=== PATIENT | female | born 1965 | race Caucasian/White ===

== ENCOUNTER 2016-09-27 03:22 | Emergency (ER) | payer BC ==
[2016-09-27 04:09] VITALS: BP 161/85; PULSE 100; TEMP 98.2; BMI 37.5
[2016-09-27] MEDS ORDERED: CLINDAMYCIN HCL 150 MG CAPSULE (FP) PO ONE (04:30)
[2016-09-27] MEDS ORDERED: IBUPROFEN 400 MG TABLET (FP) PO ONE ×2 (04:30→04:35)
[2016-09-27] MEDS ORDERED: OXYCODONE/APAP 5/325MG COMBO TABLET PO ONE (04:30)
[2016-09-27] MEDS ORDERED: CLINDAMYCIN HCL 150 MG CAPSULE (FP) ONE (04:34)
[2016-09-27] MEDS ORDERED: OXYCODONE/APAP 5/325MG COMBO TABLET ONE (04:34)
--- NOTE | 2016-09-27 04:38 | PDOC ---
"History of Present Illness - General Chief Complaint: Toothache Stated Complaint: TOOTHACHE Time Seen by Provider: 09/27/16 04:19 History Source: Patient Exam Limitations: No Limitations - History of Present Illness Initial Comments: 09/27/16 04:31 51yo Female patient presents to ED c/o dental pain that began yesterday and worsened today. Patient states she has ongoing dental issues, but does not have dental insurance. She denies any other complaints at this time. Past History - Travel Traveled outside of the country in the last 30 days: No Close contact w/someone who was outside of country & ill: No - Past Medical History Allergies/Adverse Reactions: Allergies Allergy/AdvReac Type Severity Reaction Status Date / Time Penicillins Allergy Hives Verified 09/27/16 04:05 Sulfa (Sulfonamide Allergy Verified 09/27/16 04:05 Antibiotics) beta blockers Allergy Intermediate Swelling Uncoded 09/27/16 04:05 Home Medications: Ambulatory Orders Aspirin [ASA -] 81 mg PO DAILY 03/02/14 Atorvastatin Ca [Lipitor -] 40 mg PO HS 03/02/14 Clonidine HCl 0.2 mg PO BID 03/02/14 Diltiazem Cd [Cardizem Cd -] 180 mg PO DAILY 03/02/14 Cholecalciferol (Vitamin D3) [Vitamin D] 1,000 unit PO DAILY 01/05/16 Metformin HCl [Metformin HCl ER] 1,000 mg PO BID 02/21/16 Nitrofurantoin Macrocrystal [Macrodantin -] 100 mg PO BID #14 capsule 02/21/16 Ramipril [Altace] 2.5 mg PO DAILY 02/21/16 Clindamycin [Cleocin -] 300 mg PO QID #28 capsule 09/27/16 Ibuprofen [Motrin -] 600 mg PO Q8H PRN #30 tablet 09/27/16 Oxycodone HCl/Acetaminophen [Percocet 5-325 mg Tablet] 1 tab PO Q6H PRN #20 tablet MDD 4 tabs 09/27/16 Anemia: No Asthma: No Cardiac Disorders: Yes ([place](2005)) CHF: No Diabetes: Yes (NIDDM) Disorders: Yes (Stag Horn Calculus/L, LEFT KIDNEY REMOVED) HTN: Yes Hypercholesterolemia: Yes Kidney Stones: Yes Suicide Attempt (Hx): No Thyroid Disease: Yes - Surgical History Abdominal Surgery: Yes (PARTIAL HYSTERECTOMY 2007) Cardiac Surgery: Yes (STENT X1 2005) Orthopedic Surgery: Yes (right knee arthroscopy and 'cushion'by Dr. Guevara) - Reproductive History Cervical CA: No Dysfunctional Uterine Bleeding: No Ectopic : No Endometrial CA: No Polycystic Ovaries: No Therapeutic (s) & number: No Tubal Ligation: No - Immunization History Immunization Up to Date: Yes - Psycho/Social/Smoking Cessation Hx Anxiety: No Suicidal Ideation: No Smoking Status: No Smoking History: Never smoked Have you smoked in the past 12 months: No Number of Cigarettes Smoked Daily: 0 If you are a former smoker, when did you quit?: 2005 Cigars Per Day: 0 Information on smoking cessation initiated: No 'Breaking Loose' booklet given: 02/15/12 Hx Alcohol Use: No Drug/Substance Use Hx: No Substance Use Type: None Hx Substance Use Treatment: No Review of Systems - Review of Systems Able to Perform ROS?: Yes Is the patient limited Faroese proficient: No Constitutional: No: Chills, Fever HEENTM: Yes: Mouth Pain, Dental Problems, Mouth Swelling. No: Throat Pain, Throat Swelling, Difficulty Swallowing All Other Systems: Reviewed and Negative *Physical Exam - Vital Signs Last Vital Signs Temp Pulse Resp BP Pulse Ox 98.2 F 100 H 14 161/85 100 09/27/16 04:05 09/27/16 04:05 09/27/16 04:05 09/27/16 04:05 09/27/16 04:05 - Physical Exam General Appearance: Yes: Nourished, Appropriately Dressed, Apparent Distress, Moderate Distress. No: Mild Distress, Severe Distress HEENT: positive: EOMI, CHAPARRO, Normal ENT Inspection, Normal Voice, Symmetrical, TMs Normal, Pharynx Normal, Other (Numerous severe dental caries w/ missing teeth.). negative: Pharyngeal Erythema, Tonsillar Exudate, Tonsillar Erythema, Nasal Congestion, Rhinorrhea, TM Bulging, TM Dull, TM Erythema Neck: positive: Trachea midline, Supple. negative: Lymphadenopathy (R), Lymphadenopathy (L) Respiratory/Chest: positive: Lungs Clear, Normal Breath Sounds. negative: Respiratory Distress, Accessory Muscle Use, Labored Respiration, Rapid RR, Rhonchi, Stridor, Wheezing Cardiovascular: positive: Regular Rhythm, Regular Rate. negative: Edema, JVD, Murmur Gastrointestinal/Abdominal: positive: Normal Bowel Sounds, Soft. negative: Distended, Guarding, Rebound, Tenderness Musculoskeletal: positive: Normal Inspection. negative: CVA Tenderness Extremity: positive: Normal Capillary Refill, Normal Inspection, Normal Range of Motion. negative: Pedal Edema, Swelling, Calf Tenderness, Erythema, Inflammation Integumentary: positive: Normal Color, Dry, Warm Neurologic: positive: patient case manager II-XII NML intact, Fully Oriented, Alert, Normal Mood/ Affect, Normal Response, Motor Strength 5/5 Medical Decision Making - Medical Decision Making 09/27/16 04:41 Patient Search Multi-Patient Search Reports Drug Listing Designation My JOSE MARIA Numbers Data Detail Level: Printer-Friendly View | Show Extended View Confidential Drug Utilization Report Search Terms: Laurie Pacheco, 1965 Search Date: 09/27/2016 04:42:08 AM The Drug Utilization Report below displays all of the controlled substance prescriptions, if any, that your patient has filled in the last twelve months. The information displayed on this report is compiled from pharmacy submissions to the Department, and accurately reflects the information as submitted by the pharmacies. This report was requested by: Jean Carlos Mckoy | Reference #: [id number] There are no results for the search terms that you entered. *DC/Admit/Observation/Transfer Diagnosis at time of Disposition: Pain due to dental caries - Discharge Dispostion Disposition: HOME Condition at time of disposition: Stable Admit: No - Prescriptions Prescriptions: Clindamycin [Cleocin -] 300 mg PO QID #28 capsule Ibuprofen [Motrin -] 600 mg PO Q8H PRN #30 tablet PRN Reason: Mild Pain Oxycodone HCl/Acetaminophen [Percocet 5-325 mg Tablet] 1 tab PO Q6H PRN #20 tablet MDD 4 tabs PRN Reason: Severe Pain - Referrals Referrals: Julio Kaplan MD [Primary Care Provider] - - Patient Instructions Printed Discharge Instructions: DI for Dental Pain, DI for Tooth Decay Additional Instructions: FOLLOW UP WITH YOUR DENTIST DISCUSSED. TAKE MEDICATIONS PRESCRIBED. DO NOT DRIVE, DRINK ALCOHOL, OR OPERATE HEAVY MACHINERY WHILE TAKING PERCOCET. RINSE MOUTH WITH WARM SALT WATER TWICE DAILY. Print Language: NAURUAN"
== END 2016-09-27 04:54 | disposition home or self-care (01) ==
LOC: JER 03:22
DX: K02.9 Dental caries, unspecified (principal); I25.2 Old myocardial infarction; I10 Essential (primary) hypertension; E78.00 Pure hypercholesterolemia, unspecified; E11.9 Type 2 diabetes mellitus without complications; Z79.84 Long term (current) use of oral hypoglycemic drugs
CPT/HCPCS: 99282-25

== ENCOUNTER 2017-06-13 18:27 | Emergency (ER) | payer BC ==
[2017-06-13] MEDS ORDERED: CLINDAMYCIN HCL 300 MG CAPSULE PO ONE (19:11)
--- NOTE | 2017-06-13 19:11 | PDOC ---
Rapid Medical Evaluation Time Seen by Provider: 06/13/17 19:08 Medical Evaluation: Allergies Allergy/AdvReac Type Severity Reaction Status Date / Time Penicillins Allergy Hives Verified 09/27/16 04:05 Sulfa (Sulfonamide Allergy Verified 09/27/16 04:05 Antibiotics) beta blockers Allergy Intermediate Swelling Uncoded 09/27/16 04:05 06/13/17 19:08 I have performed a brief-in person evaluation of this patient. The patient presents with a chief complaint of: I haVE a toothache since last night Pertinent physical exam findings: right lower 2nd molar toothache I have ordered the following: Clindamycin 600mg The patient will proceed to the ED for further evaulation.
[2017-06-13 19:14] VITALS: BP 159/103; PULSE 82; TEMP 98.8; BMI 37.3
--- NOTE | 2017-06-13 19:16 | PDOC ---
History of Present Illness - General Chief Complaint: Toothache Stated Complaint: PAIN Time Seen by Provider: 06/13/17 19:08 History Source: Patient - History of Present Illness Initial Comments: 06/13/17 19:14 51 yo F w/ ho [place], renal failure presents c/o right lower 2nd molar toothache since last evening without fever/chills, n/v, sore throat, difficulty swallowing. Patient states pain is described as 7/10 throbbing intermittent discomfort which is exacerbated with cold fluids. Patient has an appointment with her dentist in 2 days this feels the pain is causing her extreme difficulty with sleeping. Patient denies any other complaints. Past History - Past Medical History Allergies/Adverse Reactions: Allergies Allergy/AdvReac Type Severity Reaction Status Date / Time Penicillins Allergy Hives Verified 06/13/17 19:11 Sulfa (Sulfonamide Allergy Verified 06/13/17 19:11 Antibiotics) beta blockers Allergy Intermediate Swelling Uncoded 09/27/16 04:05 Home Medications: Ambulatory Orders Aspirin [ASA -] 81 mg PO DAILY 03/02/14 Atorvastatin Ca [Lipitor -] 40 mg PO HS 03/02/14 Clonidine HCl 0.2 mg PO BID 03/02/14 Diltiazem Cd [Cardizem Cd -] 180 mg PO DAILY 03/02/14 Cholecalciferol (Vitamin D3) [Vitamin D] 1,000 unit PO DAILY 01/05/16 Metformin HCl [Metformin HCl ER] 1,000 mg PO BID 02/21/16 Ramipril [Altace] 2.5 mg PO DAILY 02/21/16 Acetaminophen W/ Codeine #3 [Tylenol # 3 -] 1 tab PO Q6H #12 tablet MDD 4 Clindamycin HCl 300 mg PO TID #15 capsule 06/13/17 Anemia: No Asthma: No Cardiac Disorders: Yes ([place](2005)) COPD: No CHF: No Diabetes: Yes (NIDDM) Disorders: Yes (Stag Horn Calculus/L, LEFT KIDNEY REMOVED) HTN: Yes Hypercholesterolemia: Yes Kidney Stones: Yes Thyroid Disease: Yes - Surgical History Abdominal Surgery: Yes (PARTIAL HYSTERECTOMY 2007) Cardiac Surgery: Yes (STENT X1 2005) Orthopedic Surgery: Yes (right knee arthroscopy and 'cushion'by Dr. Guevara) - Reproductive History Cervical CA: No Dysfunctional Uterine Bleeding: No Ectopic : No Endometrial CA: No Polycystic Ovaries: No Therapeutic (s) & number: No Tubal Ligation: No - Immunization History Immunization Up to Date: Yes - Suicide/Smoking/Psychosocial Hx Smoking Status: No Smoking History: Never smoked Have you smoked in the past 12 months: No Number of Cigarettes Smoked Daily: 0 If you are a former smoker, when did you quit?: 2005 Cigars Per Day: 0 Information on smoking cessation initiated: No 'Breaking Loose' booklet given: 02/15/12 Hx Alcohol Use: No Drug/Substance Use Hx: No Substance Use Type: None Hx Substance Use Treatment: No Review of Systems - Review of Systems Able to Perform ROS?: Yes Comments:: 06/14/17 04:27 CONSTITUTIONAL: Absent: fever, chills, diaphoresis, generalized weakness, malaise, loss of appetite HEENT: Right lower molar toothache Absent: rhinorrhea, nasal congestion, throat pain, throat swelling, difficulty swallowing, mouth swelling, ear pain, eye pain, visual Changes CARDIOVASCULAR: Absent: chest pain, loss of consciousness, palpitations, irregular heart rate, peripheral edema RESPIRATORY: Absent: cough, shortness of breath, dyspnea with exertion, orthopnea, wheezing, stridor, hemoptysis Is the patient limited Estonian proficient: No *Physical Exam - Vital Signs Last Vital Signs Temp Pulse Resp BP Pulse Ox 98.8 F 82 18 159/103 99 06/13/17 19:11 06/13/17 19:11 06/13/17 19:11 06/13/17 19:11 06/13/17 19:11 - Physical Exam Comments: 06/14/17 04:28 GENERAL: Well developed, well nourished. Awake and alert. No acute distress. HEENT: Right lower 2nd molar pain on percussion Normocephalic, atraumatic. PERRLA, EOMI. No conjunctival pallor. Sclera are non- icteric. Moist mucous membranes. Oropharynx is clear. NECK: Supple. Full ROM. No JVD. Carotid pulses 2+ and symmetric, without bruits. No thyromegaly. No lymphadenopathy. CARDIOVASCULAR: Regular rate and rhythm. No murmurs, rubs, or gallops. Distal pulses are 2+ and symmetric. *DC/Admit/Observation/Transfer Diagnosis at time of Disposition: Toothache - Discharge Dispostion Disposition: HOME Condition at time of disposition: Good Admit: No - Prescriptions Prescriptions: Acetaminophen W/ Codeine #3 [Tylenol # 3 -] 1 tab PO Q6H #12 tablet MDD 4 Clindamycin HCl 300 mg PO TID #15 capsule - Referrals Referrals: Julio Kaplan MD [Primary Care Provider] - - Patient Instructions Printed Discharge Instructions: DI for Tooth Decay Additional Instructions: Follow up with your dentist tomorrow Take the clindamycin as prescribed Tylenol #3 for pain. 1 tablet by mouth every 6 hours only as needed for pain Return to the ER for severe/persistent/worsening symptoms - Post Discharge Activity
== END 2017-06-13 19:38 | disposition home or self-care (01) ==
LOC: JERFT 18:27
DX: K08.89 Other specified disorders of teeth and supporting structures (principal); I25.2 Old myocardial infarction; I25.10 Atherosclerotic heart disease of native coronary artery without angina pectoris; I10 Essential (primary) hypertension; Z95.5 Presence of coronary angioplasty implant and graft; E11.9 Type 2 diabetes mellitus without complications; Z79.84 Long term (current) use of oral hypoglycemic drugs; E78.00 Pure hypercholesterolemia, unspecified; Z87.442 Personal history of urinary calculi
CPT/HCPCS: 99281-25

== ENCOUNTER 2018-04-19 13:10 | Emergency (ER) | payer BC ==
[2018-04-19 14:02] VITALS: BP 111/82; PULSE 97; TEMP 98.5; BMI 37.0
--- NOTE | 2018-04-19 14:44 | PDOC ---
History of Present Illness - General Chief Complaint: Diarrhea Stated Complaint: DIARRHEA Time Seen by Provider: 04/19/18 14:26 History Source: Patient - History of Present Illness Timing/Duration: reports: constant Past History - Past Medical History Allergies/Adverse Reactions: Allergies Allergy/AdvReac Type Severity Reaction Status Date / Time Penicillins Allergy Hives Verified 04/19/18 13:59 Sulfa (Sulfonamide Allergy Verified 04/19/18 13:59 Antibiotics) beta blockers Allergy Intermediate Swelling Uncoded 04/19/18 13:59 Home Medications: Ambulatory Orders Aspirin [ASA -] 81 mg PO DAILY 03/02/14 Atorvastatin Ca [Lipitor -] 40 mg PO HS 03/02/14 Clonidine HCl 0.2 mg PO BID 03/02/14 Diltiazem Cd [Cardizem Cd -] 180 mg PO DAILY 03/02/14 Cholecalciferol (Vitamin D3) [Vitamin D] 1,000 unit PO DAILY 01/05/16 Metformin HCl [Metformin HCl ER] 1,000 mg PO BID 02/21/16 Ramipril [Altace] 2.5 mg PO DAILY 02/21/16 Acetaminophen W/ Codeine #3 [Tylenol # 3 -] 1 tab PO Q6H #12 tablet MDD 4 Clindamycin HCl 300 mg PO TID #15 capsule 06/13/17 Clindamycin [Cleocin -] 300 mg PO Q6HPO #40 capsule 12/27/17 Ibuprofen [Motrin -] 600 mg PO QID PRN #28 tablet 12/27/17 Anemia: No Asthma: No Cardiac Disorders: Yes ([place](2005)) COPD: No CHF: No Diabetes: Yes (NIDDM) Disorders: Yes (Stag Horn Calculus/L, LEFT KIDNEY REMOVED) HTN: Yes Hypercholesterolemia: Yes Kidney Stones: Yes Thyroid Disease: Yes - Surgical History Abdominal Surgery: Yes (PARTIAL HYSTERECTOMY 2007) Cardiac Surgery: Yes (STENT X1 2005) Orthopedic Surgery: Yes (right knee arthroscopy and 'cushion'by Dr. Guevara) - Reproductive History Cervical CA: No Dysfunctional Uterine Bleeding: No Ectopic : No Endometrial CA: No Polycystic Ovaries: No Therapeutic (s) & number: No Tubal Ligation: No - Immunization History Immunization Up to Date: Yes - Suicide/Smoking/Psychosocial Hx Smoking Status: No Smoking History: Never smoked Have you smoked in the past 12 months: No Number of Cigarettes Smoked Daily: 0 If you are a former smoker, when did you quit?: 2005 Cigars Per Day: 0 'Breaking Loose' booklet given: 02/15/12 Hx Alcohol Use: No Drug/Substance Use Hx: No Substance Use Type: None Hx Substance Use Treatment: No Abd/GI Specific PMHX - Complaint Specific PMHX GERD: No GI Ulcer Disease: No Review of Systems - Review of Systems Constitutional: No: Chills, Fever, Weakness ABD/GI: Yes: Diarrhea, Abdominal cramping. No: Blood Streaked Bowels, Constipated, Nausea, Rectal Bleeding, Vomiting : No: Dysuria *Physical Exam - Vital Signs Last Vital Signs Temp Pulse Resp BP Pulse Ox 98.5 F 97 H 18 111/82 97 04/19/18 13:59 04/19/18 13:59 04/19/18 13:59 04/19/18 13:59 04/19/18 13:59 - Physical Exam General Appearance: Yes: Appropriately Dressed. No: Apparent Distress HEENT: positive: Normal Voice Neck: positive: Supple Respiratory/Chest: negative: Respiratory Distress Gastrointestinal/Abdominal: positive: Normal Bowel Sounds, Soft. negative: Tender, Distended, Guarding, Rebound Musculoskeletal: negative: CVA Tenderness Integumentary: positive: Dry, Warm Neurologic: positive: Fully Oriented, Alert, Normal Mood/Affect ED Treatment Course - LABORATORY CBC & Chemistry Diagram: 04/19/18 14:55 04/19/18 14:55 Medical Decision Making - Medical Decision Making 04/19/18 14:39 52-year-old female, history of HTN, HLD, s/p resection of L kidney 2/2 staghorn calculus, here with diarrhea. Patient states for the past 3 days she' s had multiple episodes of non-bloody watery stools. At some point developed vague, intermittent, lower abdominal cramping pain that started after the diarrhea. No nausea, vomiting, fever, chills, weakness or dizziness. No sick contacts, recent travel, unusual food or recent antibiotic use. Patient states she has been drinking plenty of fluids to prevent herself from getting dehydrated since she only has 1 kidney but still concerned about possible dehydration See exam Diarrhea No RF for serious dysentery Stable and well echo w/ benign abd -basic labs -anticipate discharge w/ supportive tx 04/19/18 14:44 04/19/18 17:46 Labs unremarkable. Pt remained stable w/ benign abd. Will dc w/ supportive tx. Reasons to return d/w pt *DC/Admit/Observation/Transfer Diagnosis at time of Disposition: Diarrhea Qualifiers: Diarrhea type: unspecified type Qualified Code(s): R19.7 - Diarrhea, unspecified - Discharge Dispostion Disposition: HOME Condition at time of disposition: Good - Referrals Referrals: Julio Kaplan MD [Primary Care Provider] - - Patient Instructions Printed Discharge Instructions: Diarrhea Additional Instructions: The most common cause of diarrhea are viruses, bacteria, medications and lactose intolerance Most diarrheal illnesses are mild in nature and resolves over several days More concerning cause of diarrhea are diarrhea that lasts for a week or longer, mixed with a large amount of blood, causes severe, persistent abdominal pain or associated with high fevers, associated with antibiotics use or diarrhea that starts after recent travel, most notably to a 3rd world country If you develop the above symptoms, return to the ER, otherwise, rest your bowel by eating foods low in fiber such as bananas, rice, applesauce, toast and tea. This diet helps to reduce the amount of stool produced. Also drink plenty of fluids to prevent dehydration - Post Discharge Activity
--- NOTE | 2018-04-19 15:01 | PDOC ---
*Physical Exam - Vital Signs Last Vital Signs Temp Pulse Resp BP Pulse Ox 98.5 F 97 H 18 111/82 97 04/19/18 13:59 04/19/18 13:59 04/19/18 13:59 04/19/18 13:59 04/19/18 13:59 ED Treatment Course - LABORATORY CBC & Chemistry Diagram: 04/19/18 14:55 04/19/18 14:55 Medical Decision Making - Medical Decision Making 04/19/18 15:01 52 yo F p/w diarrhea Concerned about renal insufficiency because she has had 3 days of symptoms and has only 1 kidney No fevers No recent abx Pt hydrated in the ER No abd tenderness Pt seen by Midlevel Provider under my direct supervision Ancillary studies reviewed I agree with plan as outlined by Midlevel Provider 04/19/18 18:52 *DC/Admit/Observation/Transfer Diagnosis at time of Disposition: Diarrhea - Discharge Dispostion Disposition: HOME Condition at time of disposition: Good - Referrals Referrals: Julio Kaplan MD [Primary Care Provider] - - Patient Instructions Printed Discharge Instructions: Diarrhea Additional Instructions: The most common cause of diarrhea are viruses, bacteria, medications and lactose intolerance Most diarrheal illnesses are mild in nature and resolves over several days More concerning cause of diarrhea are diarrhea that lasts for a week or longer, mixed with a large amount of blood, causes severe, persistent abdominal pain or associated with high fevers, associated with antibiotics use or diarrhea that starts after recent travel, most notably to a 3rd world country If you develop the above symptoms, return to the ER, otherwise, rest your bowel by eating foods low in fiber such as bananas, rice, applesauce, toast and tea. This diet helps to reduce the amount of stool produced. Also drink plenty of fluids to prevent dehydration - Post Discharge Activity
[2018-04-19 15:08] LABS: BASO % 0.5 % (0-2.0); EOS % 0.3 % (0-4.5); HEMATOCRIT 47.2 % (32.4-45.2); HEMOGLOBIN 15.9 GM/dL (10.7-15.3); LYMPH % 20.3 % (8-40); MCH 29.5 pg (25.7-33.7); MCHC 33.8 g/dl (32.0-36.0); MEAN CELL VOLUME 87.3 fl (80-96); MEAN PLT VOLUME 8.4 fl (7.5-11.1); MONO % 4.4 % (3.8-10.2); NEUT % 74.5 % (42.8-82.8); PLATELET COUNT 256 K/MM3 (134-434); RBC 5.41 M/mm3 (3.60-5.2); RDW 13.4 % (11.6-15.6); WHITE BLOOD COUNT 11.6 K/mm3 (4.0-10.0)
[2018-04-19 15:52] LABS: ALBUMIN 4.1 g/dl (3.4-5.0); ALK PHOS 122 U/L (45-117); ANION GAP 12 MMOL/L (8-16); BILIRUBIN,TOTAL 0.5 mg/dL (0.2-1); BLOOD UREA NITROGEN 14 mg/dL (7-18); CALCIUM 10.1 mg/dL (8.5-10.1); CHLORIDE 104 mmol/L (98-107); CO2 21 mmol/L (21-32); GLUCOSE,RANDOM 159 mg/dL (74-106); SGOT/AST 14 U/L (15-37); SGPT/ALT 26 U/L (13-61); SODIUM 137 mmol/L (136-145); TOT PROT 8.1 g/dl (6.4-8.2)
== END 2018-04-19 18:55 | disposition home or self-care (01) ==
LOC: JER 13:10
DX: R19.7 Diarrhea, unspecified (principal); I25.10 Atherosclerotic heart disease of native coronary artery without angina pectoris; I10 Essential (primary) hypertension; Z95.5 Presence of coronary angioplasty implant and graft; I25.2 Old myocardial infarction; E11.9 Type 2 diabetes mellitus without complications; E78.00 Pure hypercholesterolemia, unspecified; Z87.442 Personal history of urinary calculi; Z90.5 Acquired absence of kidney; E07.9 Disorder of thyroid, unspecified
CPT/HCPCS: 36415; 80053; 85025; 99282-25

== ENCOUNTER 2018-11-18 09:13 | Inpatient (IN) | payer BC ==
--- NOTE | 2018-11-18 09:43 | PDOC ---
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 Patient states that this started at 8am this morning when she woke up. She usually takes 81mg ASA, but took 325mg this morning. Patient describes the pain as "sharp" and rates it 5/10. It radiates to her left shoulder and is constant. She is unable to states what makes it better or worse. No nausea, vomiting, or diaphresis. She has had dyspnea on exertion for the last two weeks. Follows with a radiation oncologist. Reports she had stress test and ECHO last year and the results were "normal." Mother had an [place] at age 39 and father had one at age 47. Took a [address] trip on 10/31/18. No hemoptysis, no recent surgical history, no hormone use, no history of DVT or PE. No fevers, chills, or abdominal pain. PCP: Julio Kaplan Cardio: Dr. Perez Past History - Past Medical History Allergies/Adverse Reactions: Allergies Allergy/AdvReac Type Severity Reaction Status Date / Time Penicillins Allergy Hives Verified 11/18/18 09:19 Sulfa (Sulfonamide Allergy Verified 11/18/18 09:19 Antibiotics) beta blockers Allergy Intermediate Swelling Uncoded 11/18/18 09:19 Home Medications: Ambulatory Orders Aspirin [ASA -] 81 mg PO DAILY 03/02/14 Atorvastatin Ca [Lipitor -] 40 mg PO HS 03/02/14 Clonidine HCl 0.2 mg PO BID 03/02/14 Diltiazem Cd [Cardizem Cd -] 180 mg PO DAILY 03/02/14 Cholecalciferol (Vitamin D3) [Vitamin D] 1,000 unit PO DAILY 01/05/16 Ramipril [Altace] 2.5 mg PO DAILY 02/21/16 metFORMIN HCL [Metformin HCl ER] 1,000 mg PO BID 02/21/16 Acetaminophen W/ Codeine #3 [Tylenol # 3 -] 1 tab PO Q6H #12 tablet MDD 4 Clindamycin HCl 300 mg PO TID #15 capsule 06/13/17 Clindamycin [Cleocin -] 300 mg PO Q6HPO #40 capsule 12/27/17 Ibuprofen [Motrin -] 600 mg PO QID PRN #28 tablet 12/27/17 Anemia: No Asthma: No Cardiac Disorders: Yes ([place](2005)) COPD: No CHF: No Diabetes: Yes (NIDDM) Disorders: Yes (Stag Horn Calculus/L, LEFT KIDNEY REMOVED) HTN: Yes Hypercholesterolemia: Yes Kidney Stones: Yes Thyroid Disease: Yes - Surgical History Abdominal Surgery: Yes (PARTIAL HYSTERECTOMY 2007) Cardiac Surgery: Yes (STENT X1 2005) Orthopedic Surgery: Yes (right knee arthroscopy and 'cushion'by Dr. Guevara) - Reproductive History Cervical CA: No Dysfunctional Uterine Bleeding: No Ectopic : No Endometrial CA: No Polycystic Ovaries: No Therapeutic (s) & number: No Tubal Ligation: No - Immunization History Immunization Up to Date: Yes - Suicide/Smoking/Psychosocial Hx Smoking Status: No Smoking History: Never smoked Have you smoked in the past 12 months: No Number of Cigarettes Smoked Daily: 0 If you are a former smoker, when did you quit?: 2005 Cigars Per Day: 0 'Breaking Loose' booklet given: 02/15/12 Hx Alcohol Use: No Drug/Substance Use Hx: No Substance Use Type: None Hx Substance Use Treatment: No Review of Systems - Review of Systems Comments:: Constitutional: no fever, no chills HEENT: no throat pain, no dysphagia Cardiovascular: +chest pain, no palpitations Respiratory: no cough, no shortness of breath Gastrointestinal: no abdominal pain, no nausea Genitourinary: no dysuria, no frequency Musculoskeletal: no myalgia, no arthralgia Skin: no rash, no itching Neurologic: no headache, +lightheaded *Physical Exam - Vital Signs Last Vital Signs Temp Pulse Resp BP Pulse Ox 98.7 F 89 18 132/75 96 11/18/18 09:19 11/18/18 09:19 11/18/18 09:19 11/18/18 09:11/18/18 09:19 - Physical Exam Comments: General: Awake, alert, and fully oriented, in no acute distress Head: No signs of trauma Eyes: EOMI, sclera anicteric ENT: Moist mucus membranes Neck: Normal ROM, supple Lungs: Lungs clear, Normal breath sounds Cardio: Regular rhythm, S1 and S2 present Abdomen: Soft, nontender. Extremities: Normal range of motion, Distal pulses present. No calf tenderness SKIN: Warm, Dry, normal turgor Neurologic: Cranial nerves II through XII grossly intact. Normal speech ED Treatment Course - LABORATORY CBC & Chemistry Diagram: 11/18/18 11:45 11/18/18 11:45 Medical Decision Making - Medical Decision Making 53yo F with PMH of HTN, HLD, [place] in 2005 s/p stent, L. kidney resection presenting with chest pain. DDX including but not limited to ACS, PE, PNA, MSK. GERD Labs, EKG, CXR EKG: rate 79, QTc 410, NSR, No ST d/e 11/18/18 09:47 CBC WBC 7.9 K/mm3 (4.0-10.0) 11/18/18 11:45 RBC 4.89 M/mm3 (3.60-5.2) 11/18/18 11:45 Hgb 14.0 GM/dL (10.7-15.3) 11/18/18 11:45 Hct 42.6 % (32.4-45.2) 11/18/18 11:45 MCV 87.1 fl (80-96) 11/18/18 11:45 MCH 28.6 pg (25.7-33.7) 11/18/18 11:45 MCHC 32.8 g/dl (32.0-36.0) 11/18/18 11:45 RDW 13.1 % (11.6-15.6) 11/18/18 11:45 Plt Count 207 K/MM3 (134-434) 11/18/18 11:45 MPV 8.7 fl (7.5-11.1) 11/18/18 11:45 Absolute Neuts (auto) 4.5 K/mm3 (1.5-8.0) 11/18/18 11:45 Neutrophils % 56.6 % (42.8-82.8) D 11/18/18 11:45 Lymphocytes % 36.3 % (8-40) D 11/18/18 11:45 Monocytes % 5.4 % (3.8-10.2) 11/18/18 11:45 Eosinophils % 1.3 % (0-4.5) D 11/18/18 11:45 Basophils % 0.4 % (0-2.0) 11/18/18 11:45 Nucleated RBC % 0 % (0-0) 11/18/18 11:45 No anemia or leukocytosis CMP Sodium 138 mmol/L (136-145) 11/18/18 11:45 Potassium 4.5 mmol/L (3.5-5.1) 11/18/18 11:45 Chloride 103 mmol/L (98-107) 11/18/18 11:45 Carbon Dioxide 28 mmol/L (21-32) 11/18/18 11:45 Anion Gap 7 MMOL/L (8-16) L 11/18/18 11:45 BUN 16 mg/dL (7-18) 11/18/18 11:45 Creatinine 1.1 mg/dL (0.55-1.3) 11/18/18 11:45 Est GFR (CKD-EPI)AfAm 66.85 11/18/18 11:45 Est GFR (CKD-EPI)NonAf 57.68 11/18/18 11:45 Random Glucose 315 mg/dL (74-106) H* 11/18/18 11:45 Calcium 9.5 mg/dL (8.5-10.1) 11/18/18 11:45 Total Bilirubin 0.4 mg/dL (0.2-1) 11/18/18 11:45 AST 11 U/L (15-37) L 11/18/18 11:45 ALT 24 U/L (13-61) 11/18/18 11:45 Alkaline Phosphatase 122 U/L (45-117) H 11/18/18 11:45 Creatine Kinase 66 U/L (26-192) 11/18/18 11:45 Troponin I < 0.02 ng/ml (0.00-0.05) 11/18/18 11:45 B-Natriuretic Peptide 55.6 pg/ml (5-125) 11/18/18 11:45 Total Protein 7.2 g/dl (6.4-8.2) 11/18/18 11:45 Albumin 3.7 g/dl (3.4-5.0) 11/18/18 11:45 Electrolytes unremarkable Tpn undetectable CXR: "Unremarkable contour of the cardiomediastinal silhouette. The lungs are well aerated without evidence of a pulmonary infiltrates, atelectasis. No evidence of vascular congestive changes. No evidence of bulky hilar adenopathy. No pneumothorax, or large pleural effusion is seen. The visualized osseous structures appear intact. Impression. No evidence of active pulmonary disease" 11/18/18 12:52 HEART score is 4 (age, risk factors, moderately suspicious history) Plan for telemetry observation 11/18/18 12:[address] Tate who accepted patient for telemetry observation under herself. 1g Ofirmev ordered for continued chest pain. Nitro was considered but blood pressure is on the lower side. 11/18/18 13:02 *DC/Admit/Observation/Transfer Diagnosis at time of Disposition: Chest pain Qualifiers: Chest pain type: unspecified Qualified Code(s): R07.9 - Chest pain, unspecified - Discharge Dispostion Condition at time of disposition: Guarded Decision to Admit order: Yes - Referrals - Patient Instructions - Post Discharge Activity
--- NOTE | 2018-11-18 10:42 | PDOC ---
Documentation entered by Tito Cruz SCRIBE, acting as scribe for Christiano Valero MD. Christiano Valero MD: This documentation has been prepared by the marcosibe, Tito Cruz SCRIBE, under my direction and personally reviewed by me in its entirety. I confirm that the documentation accurately reflects all work, treatment, procedures, and medical decision making performed by me. Attending Attestation - Resident Resident Name: Que Chaparroth - ED Attending Attestation I have performed the following: I have examined & evaluated the patient, The case was reviewed & discussed with the resident, I agree w/resident's findings & plan, Exceptions are as noted - HPI HPI: 11/18/18 10:42 53 year old F c/ hx of HTN, DM, CAD s/p stent, strong cardiac family history presents left sided chest pain since 8 am. The patient reports that she was well yesterday. Woke up this morning and felt sharp constant L sided chest pain. [place] lightheaded, but denies radiation. Denies SOB. Pt states that the pain feels somewhat like (but different) form her [place] in 2005. Pt took one baby aspirin, did not help pain. Then took a full 325 mg aspirin, but did not help. Reports its 6/10 pain. Pt was concerned for FL and came into the ER. - Physicial Exam PE: 11/18/18 10:44 GENERAL: Awake, alert, and fully oriented, in no acute distress HEAD: No signs of trauma EYES: EOMI, sclera anicteric, conjunctiva clear ENT: Auricles normal inspection, hearing grossly normal, nares patent, Moist mucosa NECK: Normal ROM, supple, LUNGS: Breath sounds equal, clear to auscultation bilaterally. No wheezes, and no crackles HEART: Regular rate and rhythm, normal S1 and S2, no murmurs, rubs or gallops ABDOMEN: Soft, nontender, No guarding, no rebound. No masses EXTREMITIES: Normal range of motion, no edema. No clubbing or cyanosis. No cords, erythema, or tenderness NEUROLOGICAL: Cranial nerves II through XII grossly intact. Normal speech SKIN: Warm, Dry, normal turgor, no rashes or lesions noted. - Medical Decision Making 11/18/18 10:45 Vital Signs Temp Pulse Resp BP Pulse Ox 98.7 F 89 18 132/75 96 11/18/18 09:19 11/18/18 09:19 11/18/18 09:19 11/18/18 09:19 11/18/18 09:19 53-year-old female with significant cardiac history presents with chest pain. We 'll need to rule out myocardial infection. labs including troponin, chest x-ray and observation to the hospital. 11/18/18 12:49 Chest xray reviewed. No acute findings. CBC, BMP 11/18/18 11:45 11/18/18 11:45 CMP Sodium 138 mmol/L (136-145) 11/18/18 11:45 Potassium 4.5 mmol/L (3.5-5.1) 11/18/18 11:45 Chloride 103 mmol/L (98-107) 11/18/18 11:45 Carbon Dioxide 28 mmol/L (21-32) 11/18/18 11:45 Anion Gap 7 MMOL/L (8-16) L 11/18/18 11:45 BUN 16 mg/dL (7-18) 11/18/18 11:45 Creatinine 1.1 mg/dL (0.55-1.3) 11/18/18 11:45 Est GFR (CKD-EPI)AfAm 66.85 11/18/18 11:45 Est GFR (CKD-EPI)NonAf 57.68 11/18/18 11:45 Random Glucose 315 mg/dL (74-106) H* 11/18/18 11:45 Calcium 9.5 mg/dL (8.5-10.1) 11/18/18 11:45 Total Bilirubin 0.4 mg/dL (0.2-1) 11/18/18 11:45 AST 11 U/L (15-37) L 11/18/18 11:45 ALT 24 U/L (13-61) 11/18/18 11:45 Alkaline Phosphatase 122 U/L (45-117) H 11/18/18 11:45 Creatine Kinase 66 U/L (26-192) 11/18/18 11:45 Troponin I < 0.02 ng/ml (0.00-0.05) 11/18/18 11:45 B-Natriuretic Peptide 55.6 pg/ml (5-125) 11/18/18 11:45 Total Protein 7.2 g/dl (6.4-8.2) 11/18/18 11:45 Albumin 3.7 g/dl (3.4-5.0) 11/18/18 11:45 Heart Score/ECG Review #1 ECG reviewed & interpreted by me at: 09:15 11/18/18 09:45 NSR 79, no std/mavis, normal axis, normal intervals, QTC 410 msec
--- NOTE | 2018-11-18 11:07 | EKG ---
Test Reason : Blood Pressure : / mmHG Vent. Rate : 079 BPM Atrial Rate : 079 BPM P-R Int : 148 ms QRS Dur : 086 ms QT Int : 358 ms P-R-T Axes : 045 054 037 degrees QTc Int : 410 ms NORMAL SINUS RHYTHM NORMAL ECG WHEN COMPARED WITH ECG OF 01-MAR-2014 22:31, NO SIGNIFICANT CHANGE WAS FOUND Confirmed by COSTA FLORES MD ([id number]) on 11/18/2018 11:07:09 AM Referred By: Confirmed By:COSTA FLORES MD
[2018-11-18 12:04] LABS: BASO % 0.4 % (0-2.0); EOS % 1.3 % (0-4.5); HEMATOCRIT 42.6 % (32.4-45.2); LYMPH % 36.3 % (8-40); MCH 28.6 pg (25.7-33.7); MCHC 32.8 g/dl (32.0-36.0); MEAN CELL VOLUME 87.1 fl (80-96); MEAN PLT VOLUME 8.7 fl (7.5-11.1); MONO % 5.4 % (3.8-10.2); NEUT % 56.6 % (42.8-82.8); PLATELET COUNT 207 K/MM3 (134-434); RBC 4.89 M/mm3 (3.60-5.2); RDW 13.1 % (11.6-15.6); WHITE BLOOD COUNT 7.9 K/mm3 (4.0-10.0)
[2018-11-18 12:30] LABS: ALBUMIN 3.7 g/dl (3.4-5.0); ALK PHOS 122 U/L (45-117); ANION GAP 7 MMOL/L (8-16); BILIRUBIN,TOTAL 0.4 mg/dL (0.2-1); BLOOD UREA NITROGEN 16 mg/dL (7-18); CALCIUM 9.5 mg/dL (8.5-10.1); CHLORIDE 103 mmol/L (98-107); CO2 28 mmol/L (21-32); CREATININE 1.1 mg/dL (0.55-1.3); N-TERMINAL BNP 55.6 pg/ml (5-125); POTASSIUM 4.5 mmol/L (3.5-5.1); SGOT/AST 11 U/L (15-37); SGPT/ALT 24 U/L (13-61); SODIUM 138 mmol/L (136-145); TOT PROT 7.2 g/dl (6.4-8.2)
[2018-11-18 12:49] LABS: GLUCOSE,RANDOM 315 mg/dL (74-106)
[2018-11-18 13:01] LABS: INR 0.97 (0.83-1.09); PROTHROMBIN TIME (PATIENT) 11.5 SEC (9.7-13.0)
[2018-11-18] MEDS ORDERED: ACETAMINOPHEN 1000 MG/100 ML VIAL (NON FORMULARY) IVPB ONE (13:02)
[2018-11-18] MEDS ORDERED: ACETAMINOPHEN INJECTION 100 ML IVPB ONE (13:13)
--- NOTE | 2018-11-18 16:52 | CON.CARD ---
Consult Consult Specialty:: Cardiology Referred by:: Medicine Reason for Consultation:: chest pain - History of Present Illness Chief Complaint: chest pain History of Present Illness: 53F h/o CAD, [place], DM, HTN p/w chest pain. Started at 8 AM, L side of chest under breast. Better if lying still, worse with turning in bed. Woke up with pain, lasted a few hours. Didn't imrove with ASA, does not feel like prior [place]. Sees Dr. Perez for cardio, thinks she had stress test and echo within the last year. Had lightheadedness this AM, now resolved, feels at baseline. - History Source History Provided By: Patient Limitations to Obtaining History: No Limitations - Past Medical History Cardio/Vascular: Yes: CAD - Alcohol/Substance Use Hx Alcohol Use: No - Smoking History Smoking history: Never smoked Have you smoked in the past 12 months: No Aproximately how many cigarettes per day: 0 If you are a former smoker, when did you quit?: 2005 Home Medications - Allergies Allergies/Adverse Reactions: Allergies Allergy/AdvReac Type Severity Reaction Status Date / Time Penicillins Allergy Hives Verified 11/18/18 09:19 Sulfa (Sulfonamide Allergy Verified 11/18/18 09:19 Antibiotics) beta blockers Allergy Intermediate Swelling Uncoded 11/18/18 09:19 - Home Medications Home Medications: Ambulatory Orders Aspirin [ASA -] 81 mg PO DAILY 03/02/14 Atorvastatin Ca [Lipitor -] 40 mg PO HS 03/02/14 Clonidine HCl 0.2 mg PO BID 03/02/14 Diltiazem Cd [Cardizem Cd -] 180 mg PO DAILY 03/02/14 Cholecalciferol (Vitamin D3) [Vitamin D] 1,000 unit PO DAILY 01/05/16 Ramipril [Altace] 2.5 mg PO DAILY 02/21/16 metFORMIN HCL [Metformin HCl ER] 1,000 mg PO BID 02/21/16 Acetaminophen W/ Codeine #3 [Tylenol # 3 -] 1 tab PO Q6H #12 tablet MDD 4 Clindamycin HCl 300 mg PO TID #15 capsule 06/13/17 Clindamycin [Cleocin -] 300 mg PO Q6HPO #40 capsule 12/27/17 Ibuprofen [Motrin -] 600 mg PO QID PRN #28 tablet 12/27/17 Family Disease History - Family Disease History Family History: Unremarkable Review of Systems - Review of Systems Constitutional: reports: No Symptoms Eyes: reports: No Symptoms HENT: reports: No Symptoms Neck: reports: No Symptoms Cardiovascular: reports: No Symptoms Respiratory: reports: No Symptoms Gastrointestinal: reports: No Symptoms Genitourinary: reports: No Symptoms Musculoskeletal: reports: No Symptoms Integumentary: reports: No Symptoms Neurological: reports: No Symptoms Endocrine: reports: No Symptoms Hematology/Lymphatic: reports: No Symptoms Psychiatric: reports: No Symptoms Vital Signs: Vital Signs Temperature 97.9 F 11/18/18 11:52 Pulse Rate 64 11/18/18 11:52 Respiratory Rate 18 11/18/18 11:52 Blood Pressure 114/74 11/18/18 11:52 O2 Sat by Pulse Oximetry (%) 98 11/18/18 11:52 Constitutional: Yes: Well Nourished, No Distress, Calm Eyes: Yes: Conjunctiva Clear, EOM Intact HENT: Yes: Atraumatic, Normocephalic Neck: Yes: Supple, Trachea Midline Respiratory: Yes: Regular, CTA Bilaterally Gastrointestinal: Yes: Normal Bowel Sounds, Soft Cardiovascular: Yes: Regular Rate and Rhythm JVD: No Carotid Bruit: No PMI: Non-Displaced Heart Sounds: Yes: S1, S2 Murmur: No: Systolic Murmur Musculoskeletal: No: Back Pain Extremities: No: Cold Edema: No Peripheral Pulses WNL: Yes Peripheral Pulses: 2+ Left Carotid, 2+ Right Carotid, 2+ Left Doralis Pedis, 2+ Right Dorsalis Pedis Integumentary: No: Jaundice Neurological: Yes: Alert, Oriented Psychiatric: No: Agitated - Other Data Labs, Other Data: CBC, BMP 11/18/18 11:45 11/18/18 11:45 INR, PTT INR 0.97 (0.83-1.09) 11/18/18 11:45 Troponin, BNP 11/18/18 11:45 Troponin I < 0.02 B-Natriuretic Peptide 55.6 Troponin, BNP 11/18/18 11:45 Troponin I < 0.02 B-Natriuretic Peptide 55.6 Assessment/Plan EKG sinus, nl intervals, no ischemic changes Chest pain - trop neg x 1, EKG no ischemic change - reportedly unremarkable echo and stress test within the last year - monitor on tele, trend trops - history more consistent with MSK CAD - h/o [place] 2005, s/p stent - CP atypical as above, rule out [place] - cont aspirin, statin DM - manage per primary HTN - continue home meds
[2018-11-18] MEDS ORDERED: ASPIRIN 81 MG CHEWABLE TABLETS ONE (19:39)
[2018-11-18] MEDS: ASPIRIN 81 MG CHEWABLE TABLETS PO SCH (19:46)
[2018-11-18] MEDS ORDERED: ATORVASTATIN CA 40 MG TABLET (FP) PO SCH (22:00)
[2018-11-18] MEDS: INSULIN SLIDING SCALE (NOVOLOG) 1 VIAL SQ SCH (23:02)
[2018-11-18] MEDS: cloNIDine HCL 0.1 MG TABLET PO SCH (23:02)
[2018-11-18 23:23] VITALS: BMI 36.3
[2018-11-19] MEDS: INSULIN SLIDING SCALE (NOVOLOG) 1 VIAL SQ SCH ×2 (06:28→12:16)
[2018-11-19 07:03] LABS: BASO % 0.4 % (0-2.0); EOS % 1.5 % (0-4.5); HEMATOCRIT 42.1 % (32.4-45.2); HEMOGLOBIN 14.1 GM/dL (10.7-15.3); LYMPH % 41.2 % (8-40); MCH 28.9 pg (25.7-33.7); MCHC 33.4 g/dl (32.0-36.0); MEAN CELL VOLUME 86.6 fl (80-96); MEAN PLT VOLUME 8.7 fl (7.5-11.1); MONO % 6.7 % (3.8-10.2); NEUT % 50.2 % (42.8-82.8); PLATELET COUNT 225 K/MM3 (134-434); RBC 4.87 M/mm3 (3.60-5.2); WHITE BLOOD COUNT 7.6 K/mm3 (4.0-10.0)
[2018-11-19 07:27] LABS: ALBUMIN 3.6 g/dl (3.4-5.0); ALK PHOS 115 U/L (45-117); ANION GAP 7 MMOL/L (8-16); BILIRUBIN,TOTAL 0.4 mg/dL (0.2-1); BLOOD UREA NITROGEN 18 mg/dL (7-18); CALCIUM 9.6 mg/dL (8.5-10.1); CHLORIDE 103 mmol/L (98-107); CO2 27 mmol/L (21-32); GLUCOSE,RANDOM 252 mg/dL (74-106); POTASSIUM 4.6 mmol/L (3.5-5.1); SGOT/AST 14 U/L (15-37); SGPT/ALT 22 U/L (13-61); SODIUM 137 mmol/L (136-145); TOT PROT 6.9 g/dl (6.4-8.2)
[2018-11-19] MEDS ORDERED: PNEUMOCOCCAL 23 VACCINE 0.5 ML VIAL IM ONE (08:00)
[2018-11-19] MEDS ORDERED: PNEUMOC 13-VAL CONJ-DIP CRM/PF 0.5 ML DISP.SYRIN IM ONE (08:00)
--- NOTE | 2018-11-19 09:43 | ECHO ---
Version: 1 Name: JEISON OWENS Exam: Adult Echocardiogram Study Date: 11/19/2018, 8:16 AM Age: 53 Years MMode/2D Measurements & Calculations IVSd: 1.06 cm LVIDs: 3.3 cm LVIDd: 5.2 cm LVPWd: 0.79 cm ACS: 2.05 cm Ao root diam: 3.8 cm LA dimension: 3.5 cm Doppler Measurements & Calculations MV E max ganesh: 71.3 cm/sec Med E/e': 15.6 MV A max ganesh: 62.2 cm/sec Med Peak E' Ganesh: 4.6 cm/sec MV E/A: 1.15 Lat E/e': 8.9 Lat Peak E' Ganesh: 8.0 cm/sec Ao max P.1 mmHg Ao mean P.2 mmHg Ao V2 max: 158.8 cm/sec Left Ventricle The left ventricular size, thickness and function are normal. Right Ventricle The right ventricle is normal in size and function. Atria Normal left and right atrial size and function. Mitral Valve The mitral valve is grossly normal. Tricuspid Valve The tricuspid valve is normal in structure and function. There is trace tricuspid regurgitation. Aortic Valve The aortic valve is normal in structure and function. Pulmonic Valve The pulmonic valve is normal in structure and function. Great Vessels The aortic root is normal size. Pericardium/Pleura There is no pericardial effusion. Summary Statements The left ventricular size, thickness and function are normal The right ventricle is normal in size and function. Normal left and right atrial size and function. The mitral valve is grossly normal. The tricuspid valve is normal in structure and function. There is trace tricuspid regurgitation. The aortic valve is normal in structure and function. The pulmonic valve is normal in structure and function. EF 66.8% PASP 20 mmHg MD Phani Raines 11/19/2018, 8:43 AM Ordering Physician: Juliet Tate Performed By: Erma Andrews
[2018-11-19] MEDS ORDERED: ENOXAPARIN NA (PORCINE) 40 MG/0.4 ML DISP.SYRIN SQ SCH (10:00)
[2018-11-19] MEDS ORDERED: CHOLECALCIFEROL (VIT D3) 1,000 UNIT (25 MCG) TABLET PO SCH (10:00)
[2018-11-19] MEDS ORDERED: RAMIPRIL 2.5 MG CAPSULE (FP) PO SCH (10:00)
[2018-11-19 10:50] VITALS: BP 112/60; PULSE 66; TEMP 98
[2018-11-19] MEDS: ASPIRIN 81 MG CHEWABLE TABLETS PO SCH (10:50)
[2018-11-19] MEDS: cloNIDine HCL 0.1 MG TABLET PO SCH (10:50)
--- NOTE | 2018-11-19 11:24 | PN ---
Progress Note, Physician - Current Medication List Current Medications: Active Medications Aspirin (Asa -) 81 mg PO DAILY [facility] Last Admin: 11/19/18 10:50 Dose: 81 mg Atorvastatin Calcium (Lipitor -) 40 mg PO HS [facility] Last Admin: 11/18/18 23:02 Dose: 40 mg Cholecalciferol (Vitamin D3 -) 1,000 unit PO DAILY [facility] Last Admin: 11/19/18 10:50 Dose: 1,000 unit Clonidine (Catapres -) 0.2 mg PO BID [facility] Last Admin: 11/19/18 10:50 Dose: 0.2 mg Diltiazem HCl (Cardizem Cd -) 180 mg PO DAILY [facility] Last Admin: 11/19/18 10:50 Dose: 180 mg Enoxaparin Sodium (Lovenox -) 40 mg SQ DAILY [facility] Last Admin: 11/19/18 10:51 Dose: 40 mg Insulin Aspart (Novolog Vial Sliding Scale -) 1 vial SQ [facility]; Protocol Last Admin: 11/19/18 06:28 Dose: 6 unit Metformin HCl (Glucophage Xr -) 1,000 mg PO BIDAC [facility] Last Admin: 11/19/18 10:50 Dose: 1,000 mg Ramipril (Altace -) 2.5 mg PO DAILY [facility] Last Admin: 11/19/18 10:50 Dose: 2.5 mg - Objective Vital Signs: Vital Signs Temperature 98 F 11/19/18 10:48 Pulse Rate 66 11/19/18 10:48 Respiratory Rate 18 11/19/18 10:48 Blood Pressure 112/60 11/19/18 10:48 O2 Sat by Pulse Oximetry (%) 98 11/19/18 09:00 Labs: CBC, BMP 11/19/18 05:40 11/19/18 05:40 INR, PTT INR 0.97 (0.83-1.09) 11/18/18 11:45
--- NOTE | 2018-11-19 11:47 | PN ---
Progress Note (short form) - Note Progress Note: s: no chest pain, palps, dizziness, dyspnea Current Medications Aspirin (Asa -) 81 mg PO DAILY [facility] Last Admin: 11/19/18 10:50 Dose: 81 mg Atorvastatin Calcium (Lipitor -) 40 mg PO HS [facility] Last Admin: 11/18/18 23:02 Dose: 40 mg Cholecalciferol (Vitamin D3 -) 1,000 unit PO DAILY [facility] Last Admin: 11/19/18 10:50 Dose: 1,000 unit Clonidine (Catapres -) 0.2 mg PO BID [facility] Last Admin: 11/19/18 10:50 Dose: 0.2 mg Diltiazem HCl (Cardizem Cd -) 180 mg PO DAILY [facility] Last Admin: 11/19/18 10:50 Dose: 180 mg Enoxaparin Sodium (Lovenox -) 40 mg SQ DAILY [facility] Last Admin: 11/19/18 10:51 Dose: 40 mg Insulin Aspart (Novolog Vial Sliding Scale -) 1 vial SQ [facility]; Protocol Last Admin: 11/19/18 06:28 Dose: 6 unit Metformin HCl (Glucophage Xr -) 1,000 mg PO BIDAC [facility] Last Admin: 11/19/18 10:50 Dose: 1,000 mg Ramipril (Altace -) 2.5 mg PO DAILY [facility] Last Admin: 11/19/18 10:50 Dose: 2.5 mg Vital Signs Period Temp Pulse Resp BP Sys/Puckett Pulse Ox Last 24 Hr 97.7 F-98.3 F 62-72 18-18 112-131/60-74 97-98 Constitutional: Yes: Well Nourished, No Distress, Calm Eyes: Yes: Conjunctiva Clear, EOM Intact HENT: Yes: Atraumatic, Normocephalic Neck: Yes: Supple, Trachea Midline Respiratory: Yes: Regular, CTA Bilaterally Gastrointestinal: Yes: Normal Bowel Sounds, Soft Cardiovascular: Yes: Regular Rate and Rhythm JVD: No Carotid Bruit: No PMI: Non-Displaced Heart Sounds: Yes: S1, S2 Murmur: No: Systolic Murmur Musculoskeletal: No: Back Pain Extremities: No: Cold Edema: No Peripheral Pulses WNL: Yes Peripheral Pulses: 2+ Left Carotid, 2+ Right Carotid, 2+ Left Doralis Pedis, 2+ Right Dorsalis Pedis Integumentary: No: Jaundice Neurological: Yes: Alert, Oriented Psychiatric: No: Agitated Assessment/Plan EKG sinus, nl intervals, no ischemic changes Chest pain - trop neg x 3, EKG no ischemic change - reportedly unremarkable stress test within the last year - echo unremarkable here - history more consistent with MSK - stable for dc from cardiac perspective, follow up with Dr. Perez CAD - h/o [place] 2005, s/p stent - CP atypical as above, rule out [place] - cont aspirin, statin DM - manage per primary HTN - continue home meds
--- NOTE | 2018-11-19 13:32 | HP ---
Admitting History and Physical - Past Medical History Cardiovascular: Yes: CAD ...: No - Smoking History Smoking history: Never smoked Have you smoked in the past 12 months: No Aproximately how many cigarettes per day: 0 If you are a former smoker, when did you quit?: 2005 - Alcohol/Substance Use Hx Alcohol Use: No Home Medications - Allergies Allergies/Adverse Reactions: Allergies Allergy/AdvReac Type Severity Reaction Status Date / Time Penicillins Allergy Hives Verified 11/18/18 09:19 Sulfa (Sulfonamide Allergy Verified 11/18/18 09:19 Antibiotics) beta blockers Allergy Intermediate Swelling Uncoded 11/18/18 09:19 - Home Medications Home Medications: Ambulatory Orders Aspirin [ASA -] 81 mg PO DAILY 03/02/14 Atorvastatin Ca [Lipitor -] 40 mg PO HS 03/02/14 Clonidine HCl 0.2 mg PO BID 03/02/14 Diltiazem Cd [Cardizem Cd -] 180 mg PO DAILY 03/02/14 Cholecalciferol (Vitamin D3) [Vitamin D] 1,000 unit PO DAILY 01/05/16 Ramipril [Altace] 2.5 mg PO DAILY 02/21/16 metFORMIN HCL [Metformin HCl ER] 1,000 mg PO BID 02/21/16 Acetaminophen W/ Codeine #3 [Tylenol # 3 -] 1 tab PO Q6H #12 tablet MDD 4 Clindamycin HCl 300 mg PO TID #15 capsule 06/13/17 Clindamycin [Cleocin -] 300 mg PO Q6HPO #40 capsule 12/27/17 Ibuprofen [Motrin -] 600 mg PO QID PRN #28 tablet 12/27/17 Physical Examination Vital Signs: Vital Signs Temperature 98 F 11/19/18 10:48 Pulse Rate 66 11/19/18 10:48 Respiratory Rate 18 11/19/18 10:48 Blood Pressure 112/60 11/19/18 10:48 O2 Sat by Pulse Oximetry (%) 98 11/19/18 09:00 Labs: CBC, BMP 11/19/18 05:40 11/19/18 05:40
== END 2018-11-19 15:24 | disposition home or self-care (01) | DRG 303 ==
LOC: JER 09:13 → JERBED 13:05 → OBSVTOIN 19:04 → J4W 21:48
PROVIDERS: ADMIT Internal Medicine; ATTEND Internal Medicine
DX: I25.10 Atherosclerotic heart disease of native coronary artery without angina pectoris (principal); R07.9 Chest pain, unspecified; E11.9 Type 2 diabetes mellitus without complications; I10 Essential (primary) hypertension; Z98.61 Coronary angioplasty status; E78.5 Hyperlipidemia, unspecified
CPT/HCPCS: 36415; 71045-TC-FY; 80053; 82550; 82962; 83880; 84484; 85025; 85610; 85730; 90732; 93005; 93010; 93306-TC; 99285-25; G0009; G0378; J0131; J0735

== ENCOUNTER 2022-03-08 16:14 | Emergency (ER) | payer BC ==
[2022-03-08 16:43] VITALS: TEMP 99; BMI 35.4
[2022-03-08] MEDS ORDERED: SODIUM CHLORIDE 0.9% 500 ML INFUS.BAG IV ONE (17:55)
[2022-03-08] MEDS ORDERED: ACETAMINOPHEN 1000 MG/100 ML BAG IVPB ONE (17:55)
[2022-03-08] MEDS ORDERED: METHOCARBAMOL 500 MG TABLET PO ONE (19:20)
[2022-03-08] MEDS ORDERED: LIDOCAINE 5% TOPICAL PATCH TP ONE (19:20)
[2022-03-08] MEDS ORDERED: METHOCARBAMOL 500 MG TABLET ONE (19:29)
[2022-03-08] MEDS ORDERED: LIDOCAINE 5% TOPICAL PATCH ONE (19:30)
[2022-03-08] MEDS ORDERED: ACETAMINOPHEN INJECTION 100 ML IVPB ONE (19:30)
[2022-03-08 20:01] LABS: BASO % 0.3 % (0-2.0); EOS % 0.8 % (0-4.5); HEMATOCRIT 46.7 % (32.4-45.2); HEMOGLOBIN 15.6 GM/dL (10.7-15.3); MCH 29.2 pg (25.7-33.7); MCHC 33.4 g/dl (32.0-36.0); MEAN CELL VOLUME 87.3 fl (80-96); MEAN PLT VOLUME 8.1 fl (7.5-11.1); MONO % 5.7 % (3.8-10.2); NEUT % 64.2 % (42.8-82.8); PLATELET COUNT 256 10^3/uL (134-434); RBC 5.35 M/mm3 (3.60-5.2); RDW 13.6 % (11.6-15.6); WHITE BLOOD COUNT 11.7 K/mm3 (4.0-10.0)
[2022-03-08 20:20] LABS: BLOOD UREA NITROGEN 16.3 mg/dL (7-18); CALCIUM 10.2 mg/dL (8.5-10.1)
[2022-03-08 20:21] LABS: ALBUMIN 4.4 g/dl (3.4-5.0); MAGNESIUM 2.2 mg/dL (1.8-2.4)
[2022-03-08 20:22] LABS: INR 1.02 (0.83-1.09); PROTHROMBIN TIME (PATIENT) 11.7 SEC (9.7-13.0)
[2022-03-08 20:25] LABS: ACTIVATED PTT 33.1 SECONDS (25.2-36.5); BILIRUBIN,TOTAL 0.4 mg/dL (0.2-1)
[2022-03-08] MEDS ORDERED: LIDOCAINE PATCH REMOVAL MC SCH (22:00)
[2022-03-09 00:41] VITALS: BP 157/86; PULSE 85; RESP 18
== END 2022-03-09 00:55 | disposition home or self-care (01) ==
LOC: JER 16:14
PROC: 3E033GC Introduction of Other Therapeutic Substance into Peripheral Vein, Percutaneous Approach (ICD-10-PCS; principal; 2022-03-08)
DX: R00.2 Palpitations (principal)
CPT/HCPCS: 36415; 71045-TC-FY; 80053; 83735; 84439; 84443; 84484; 85025; 85379; 85610; 85730; 93005; 93010; 99285-25; C9803-CS; U0003; U0005

== ENCOUNTER 2022-06-26 13:37 | Emergency (ER) | payer BC ==
[2022-06-26 14:01] VITALS: RESP 18; TEMP 98.5; BMI 34.7
[2022-06-26 16:10] LABS: PROTHROMBIN TIME (PATIENT) 11.5 SEC (9.7-13.0)
[2022-06-26 16:13] LABS: ACTIVATED PTT 34.4 SECONDS (25.2-36.5)
[2022-06-26 16:30] LABS: ALBUMIN 4.1 g/dl (3.4-5.0); BLOOD UREA NITROGEN 15.3 mg/dL (7-18); CALCIUM 10.4 mg/dL (8.5-10.1); MAGNESIUM 1.9 mg/dL (1.8-2.4)
[2022-06-26 16:33] LABS: PHOSPHOROUS 3.1 mg/dL (2.5-4.9)
[2022-06-26 16:34] LABS: BILIRUBIN,TOTAL 0.4 mg/dL (0.2-1); TOT PROT 7.9 g/dl (6.4-8.2)
[2022-06-26 16:37] LABS: BASO % 0.6 % (0-2.0); EOS % 1.2 % (0-4.5); HEMATOCRIT 44.3 % (32.4-45.2); HEMOGLOBIN 14.5 GM/dL (10.7-15.3); LYMPH % 30.4 % (8-40); MCH 28.7 pg (25.7-33.7); MCHC 32.7 g/dl (32.0-36.0); MEAN CELL VOLUME 87.6 fl (80-96); MEAN PLT VOLUME 7.8 fl (7.5-11.1); MONO % 5.1 % (3.8-10.2); NEUT % 62.7 % (42.8-82.8); PLATELET COUNT 248 10^3/uL (134-434); RBC 5.06 M/mm3 (3.60-5.2); RDW 13.4 % (11.6-15.6); WHITE BLOOD COUNT 10.1 K/mm3 (4.0-10.0)
[2022-06-26 18:57] VITALS: BP 154/87; PULSE 71
== END 2022-06-26 18:58 | disposition home or self-care (01) ==
LOC: JER 13:37
DX: R00.2 Palpitations (principal)
CPT/HCPCS: 0241U-QW; 36415; 71046-TC-FY; 80053; 83735; 84100; 84443; 84484; 85025; 85379; 85610; 85730; 93005; 93010; 99285-25

== ENCOUNTER 2022-10-12 00:59 | Inpatient (IN) | payer BC ==
[2022-10-12 05:32] LABS: INR 1.01 (0.83-1.09); PROTHROMBIN TIME (PATIENT) 11.7 SEC (9.7-13.0)
[2022-10-12 05:34] LABS: BASO % 0.5 % (0-2.0); EOS % 2.4 % (0-4.5); HEMATOCRIT 42.2 % (32.4-45.2); HEMOGLOBIN 14.7 GM/dL (10.7-15.3); LYMPH % 41.8 % (8-40); MCH 29.8 pg (25.7-33.7); MCHC 34.8 g/dl (32.0-36.0); MEAN CELL VOLUME 85.4 fl (80-96); MEAN PLT VOLUME 8.7 fl (7.5-11.1); MONO % 5.4 % (3.8-10.2); NEUT % 49.9 % (42.8-82.8); PLATELET COUNT 235 10^3/uL (134-434); RBC 4.94 M/mm3 (3.60-5.2); RDW 13.2 % (11.6-15.6); WHITE BLOOD COUNT 8.2 K/mm3 (4.0-10.0)
[2022-10-12 05:35] LABS: ACTIVATED PTT 34.2 SECONDS (25.2-36.5)
[2022-10-12 05:43] LABS: ALBUMIN 4.3 g/dl (3.4-5.0)
[2022-10-12 05:46] LABS: CREATININE 0.9 mg/dL (0.55-1.3)
[2022-10-12 05:48] LABS: BILIRUBIN,TOTAL 0.4 mg/dL (0.2-1); TOT PROT 7.8 g/dl (6.4-8.2)
[2022-10-12] MEDS: APIXABAN 5 MG TABLET PO SCH (22:37)
[2022-10-12] MEDS: ATORVASTATIN CA 40 MG TABLET (FP) PO SCH (22:37)
[2022-10-12] MEDS: INSULIN SLIDING SCALE (NOVOLOG) 1 VIAL SQ SCH (22:37)
[2022-10-13 00:15] VITALS: BMI 34.4
[2022-10-13] MEDS: INSULIN SLIDING SCALE (NOVOLOG) 1 VIAL SQ SCH ×4 (06:12→21:15)
[2022-10-13] MEDS: APIXABAN 5 MG TABLET PO SCH ×3 (11:49→19:46)
[2022-10-13] MEDS ORDERED: ALBUTEROL SO4 HFA INHALER IH PRN (15:20)
[2022-10-13] MEDS ORDERED: INSULIN SLIDING SCALE (NOVOLOG) 1 VIAL SQ ONE (21:07)
[2022-10-13] MEDS: ATORVASTATIN CA 40 MG TABLET (FP) PO SCH (21:14)
[2022-10-13] MEDS: cloNIDine HCL 0.1 MG TABLET PO SCH (21:14)
[2022-10-13] MEDS ORDERED: PATIENT'S OWN MEDICATION (NON-FORMULARY) (Clonidine Hcl [Clonidine Hcl] 0.2 MG Tablet) PO SCH (22:00)
[2022-10-14] MEDS ORDERED: INSULIN SLIDING SCALE (NOVOLOG) 1 VIAL SQ ONE (05:58)
[2022-10-14] MEDS: INSULIN SLIDING SCALE (NOVOLOG) 1 VIAL SQ SCH ×2 (05:59→11:53)
[2022-10-14 06:15] VITALS: TEMP 98.3
[2022-10-14 07:14] LABS: BASO % 0.4 % (0-2.0); EOS % 1.7 % (0-4.5); HEMATOCRIT 42.8 % (32.4-45.2); HEMOGLOBIN 14.8 GM/dL (10.7-15.3); LYMPH % 43.1 % (8-40); MCH 29.6 pg (25.7-33.7); MCHC 34.7 g/dl (32.0-36.0); MEAN CELL VOLUME 85.3 fl (80-96); MEAN PLT VOLUME 8.7 fl (7.5-11.1); MONO % 6.7 % (3.8-10.2); NEUT % 48.1 % (42.8-82.8); PLATELET COUNT 217 10^3/uL (134-434); RBC 5.01 M/mm3 (3.60-5.2); RDW 13.5 % (11.6-15.6); WHITE BLOOD COUNT 7.1 K/mm3 (4.0-10.0)
[2022-10-14 07:32] LABS: ALBUMIN 3.6 g/dl (3.4-5.0); BLOOD UREA NITROGEN 15.4 mg/dL (7-18); CALCIUM 9.8 mg/dL (8.5-10.1)
[2022-10-14 07:35] LABS: CREATININE 0.9 mg/dL (0.55-1.3)
[2022-10-14 07:37] LABS: BILIRUBIN,TOTAL 0.5 mg/dL (0.2-1); TOT PROT 6.8 g/dl (6.4-8.2)
[2022-10-14] MEDS ORDERED: NIFEdipine E.R. 30 MG TABLET PO SCH (10:00)
[2022-10-14] MEDS ORDERED: NIFEDIPINE 30 MG PO SCH (10:00)
[2022-10-14] MEDS ORDERED: ASPIRIN COATED 81 MG TABLET.EC PO SCH (10:00)
[2022-10-14] MEDS: cloNIDine HCL 0.1 MG TABLET PO SCH (10:14)
[2022-10-14 14:32] VITALS: BP 116/80; PULSE 82; RESP 20
== END 2022-10-14 15:58 | disposition home or self-care (01) | DRG 310 ==
LOC: JER 00:59 → JERBED 06:08 → OBSVTOIN 17:11 → J4S 20:51
PROVIDERS: ADMIT Internal Medicine; ATTEND Internal Medicine
DX: R00.0 Tachycardia, unspecified (principal); R00.2 Palpitations; R55 Syncope and collapse; E05.90 Thyrotoxicosis, unspecified without thyrotoxic crisis or storm; I10 Essential (primary) hypertension; E78.5 Hyperlipidemia, unspecified; E11.9 Type 2 diabetes mellitus without complications; I25.10 Atherosclerotic heart disease of native coronary artery without angina pectoris; Z95.5 Presence of coronary angioplasty implant and graft; E66.9 Obesity, unspecified; Z68.34 Body mass index [BMI] 34.0-34.9, adult
CPT/HCPCS: 36415; 71046-TC-FY; 80053; 82550; 82962; 84443; 84484; 85025; 85610; 85730; 93005; 93010; 93306-TC; 99285-25; C9803-CS; G0378; U0003; U0005

== ENCOUNTER 2023-02-07 15:35 | Emergency (ER) | payer BC ==
[2023-02-07 15:50] VITALS: BP 164/85; PULSE 105; RESP 18; TEMP 98.2; BMI 33.6
[2023-02-07 16:27] LABS: EPI CELLS 9 /uL (0-25.1); HYALINE CASTS 0 /uL (0-3.1); PH,URINE 6.5 (5.0-8.0); URINE APPEARANCE CLEAR; URINE BACTERIA 53 /uL (0-1359); URINE BILIRUBIN NEGATIVE (NEGATIVE); URINE COLOR YELLOW; URINE GLUCOSE (UA) NEGATIVE (NEGATIVE); URINE KETONE NEGATIVE (NEGATIVE); URINE LEUK ESTERASE 1+ (NEGATIVE); URINE NITRITE NEGATIVE (NEGATIVE); URINE PROTEIN NEGATIVE (NEGATIVE); URINE RBC 18 /uL (0-23.9); URINE UROBILINOGEN 0.2 mg/dL (0.2-1.0); URINE WBC 5 /uL (0-25.8)
[2023-02-07 17:32] LABS: BASO % 0.7 % (0-2.0); EOS % 1.3 % (0-4.5); HEMATOCRIT 44.3 % (32.4-45.2); HEMOGLOBIN 14.8 GM/dL (10.7-15.3); LYMPH % 36.2 % (8-40); MCHC 33.4 g/dl (32.0-36.0); MEAN PLT VOLUME 8.7 fl (7.5-11.1); MONO % 5.6 % (3.8-10.2); NEUT % 56.2 % (42.8-82.8); PLATELET COUNT 226 10^3/uL (134-434); RBC 5.09 M/mm3 (3.60-5.2); RDW 13.6 % (11.6-15.6); WHITE BLOOD COUNT 9.7 K/mm3 (4.0-10.0)
[2023-02-07 17:48] LABS: INR 1.08 (0.83-1.09); PROTHROMBIN TIME (PATIENT) 12.5 SEC (9.7-13.0)
[2023-02-07 17:58] LABS: POTASSIUM 4.4 mmol/L (3.5-5.1)
[2023-02-07 18:01] LABS: CALCIUM 10.2 mg/dL (8.5-10.1)
[2023-02-07 18:02] LABS: ALBUMIN 4.1 g/dl (3.4-5.0); BLOOD UREA NITROGEN 11.1 mg/dL (7-18)
[2023-02-07 18:05] LABS: CREATININE 0.9 mg/dL (0.55-1.3)
[2023-02-07 18:06] LABS: BILIRUBIN,TOTAL 0.5 mg/dL (0.2-1); TOT PROT 7.8 g/dl (6.4-8.2)
[2023-02-07 18:09] LABS: N-TERMINAL BNP 106.5 pg/ml (5-125)
[2023-02-07] MEDS ORDERED: LACTATED RINGERS SOLUTION 1000 ML INFUS.BAG IV ONE (18:13)
== END 2023-02-07 19:12 | disposition home or self-care (01) ==
LOC: JER 15:35
DX: R00.2 Palpitations (principal); R53.1 Weakness; R63.0 Anorexia; R35.0 Frequency of micturition; R53.81 Other malaise; R94.6 Abnormal results of thyroid function studies; Z20.822 Contact with and (suspected) exposure to COVID-19
CPT/HCPCS: 0241U-QW; 36415; 71046-TC-FY; 80053; 81003; 83880; 84439; 84443; 84484; 85025; 85379; 85610; 87086; 93005; 93010; 99285-25

== ENCOUNTER 2024-02-11 13:36 | Emergency (ER) | payer BC ==
[2024-02-11 13:50] VITALS: RESP 18; TEMP 99.4; BMI 33.3
[2024-02-11] MEDS ORDERED: ACETAMINOPHEN INJECTION 100 ML ONE (14:13)
[2024-02-11 14:44] LABS: EPI CELLS 19 /uL (0-25.1); HYALINE CASTS 2 /uL (0-3.1); PH,URINE 5.5 (5.0-8.0); URINE APPEARANCE CLEAR; URINE BACTERIA 533 /uL (0-1359); URINE BILIRUBIN NEGATIVE (NEGATIVE); URINE COLOR YELLOW; URINE GLUCOSE (UA) NEGATIVE (NEGATIVE); URINE KETONE NEGATIVE (NEGATIVE); URINE LEUK ESTERASE NEGATIVE (NEGATIVE); URINE NITRITE NEGATIVE (NEGATIVE); URINE PROTEIN 2+ (NEGATIVE); URINE RBC 13 /uL (0-23.9); URINE UROBILINOGEN 0.2 mg/dL (0.2-1.0); URINE WBC 16 /uL (0-25.8)
[2024-02-11] MEDS ORDERED: ONDANSETRON 4 MG/2 ML VIAL ONE (14:54)
[2024-02-11 15:14] LABS: BASO % 0.4 % (0-2.0); EOS % 1.1 % (0-4.5); HEMATOCRIT 45.2 % (32.4-45.2); HEMOGLOBIN 15.1 GM/dL (10.7-15.3); LYMPH % 33.2 % (8-40); MCH 28.6 pg (25.7-33.7); MCHC 33.4 g/dl (32.0-36.0); MEAN CELL VOLUME 85.8 fl (80-96); MONO % 6.4 % (3.8-10.2); NEUT % 58.9 % (42.8-82.8); PLATELET COUNT 229 10^3/uL (134-434); RBC 5.26 M/mm3 (3.60-5.2); RDW 13.6 % (11.6-15.6); WHITE BLOOD COUNT 7.6 K/mm3 (4.0-10.0)
[2024-02-11] MEDS: ONDANSETRON 4 MG/2 ML VIAL IVPUSH ONE (15:14)
[2024-02-11] MEDS: ACETAMINOPHEN 1000 MG/100 ML BAG IVPB ONE (15:14)
[2024-02-11 15:22] LABS: INR 0.97 (0.83-1.09)
[2024-02-11 15:24] LABS: ACTIVATED PTT 34.1 SECONDS (25.2-36.5)
[2024-02-11 15:32] LABS: POTASSIUM 4.3 mmol/L (3.5-5.1)
[2024-02-11 15:34] LABS: CALCIUM 10.5 mg/dL (8.5-10.1)
[2024-02-11 15:35] LABS: ALBUMIN 4.2 g/dl (3.4-5.0); BLOOD UREA NITROGEN 13.8 mg/dL (7-18)
[2024-02-11 15:40] LABS: BILIRUBIN,TOTAL 0.4 mg/dL (0.2-1); TOT PROT 7.8 g/dl (6.4-8.2)
[2024-02-11 18:21] VITALS: BP 144/85; PULSE 76
[2024-02-11] MEDS ORDERED: MORPHINE SULFATE 2 MG/ML SYRINGE ONE (21:10)
[2024-02-11] MEDS: morphine CARPU-JECT 2 MG/1 ML DISP.SYRIN IVPUSH ONE (21:15)
== END 2024-02-11 22:56 | disposition home or self-care (01) ==
LOC: JER 13:36
PROC: 3E033NZ Introduction of Analgesics, Hypnotics, Sedatives into Peripheral Vein, Percutaneous Approach (ICD-10-PCS; principal; 2024-02-11)
PROC: 3E033NZ Introduction of Analgesics, Hypnotics, Sedatives into Peripheral Vein, Percutaneous Approach (ICD-10-PCS; 2024-02-11)
PROC: 3E033GC Introduction of Other Therapeutic Substance into Peripheral Vein, Percutaneous Approach (ICD-10-PCS; 2024-02-11)
DX: R10.11 Right upper quadrant pain (principal); R11.0 Nausea
CPT/HCPCS: 36415; 74177-TC; 76705-TC; 80053; 81003; 83690; 85025; 85610; 85730; 86850; 86900; 86901; 87086; 87186; 99285-25; J0131

== ENCOUNTER 2024-10-31 22:09 | Emergency (ER) | payer BC ==
[2024-10-31 22:17] VITALS: TEMP 98.7; BMI 33.2
[2024-10-31 22:40] LABS: EPI CELLS 7 /uL (0-25.1); HYALINE CASTS 0 /uL (0-3.1); URINE APPEARANCE Error; URINE BACTERIA 33 /uL (0-1359); URINE BILIRUBIN NEGATIVE (NEGATIVE); URINE COLOR YELLOW; URINE GLUCOSE (UA) TRACE (NEGATIVE); URINE KETONE NEGATIVE (NEGATIVE); URINE LEUK ESTERASE TRACE (NEGATIVE); URINE NITRITE NEGATIVE (NEGATIVE); URINE PROTEIN 2+ (NEGATIVE); URINE RBC 5 /uL (0-23.9); URINE WBC 53 /uL (0-25.8)
[2024-10-31 23:11] LABS: ABSOLUTE IMMATURE GRANULOCYTES 0.02 x10^3/uL (0.0-0.031); BASOPHILS # 0.04 x10^3/uL (0.01-0.08); EOSINOPHILS # 0.21 x10^3/uL (0.04-0.36); HEMATOCRIT 45.2 % (34.1-44.9); HEMOGLOBIN 14.7 g/dL (11.2-15.7); MCHC 32.5 g/dl (32.2-35.5); MEAN CELL VOLUME 87.4 fl (79.4-94.8); MEAN PLT VOLUME 9.6 fl (9.4-12.3); MONOCYTE % 6.6 % (4.7-12.5); PLATELET COUNT 207 x10^3/uL (182-369)
[2024-10-31] MEDS: SODIUM CHLORIDE 1,000 ML IV STA (23:24)
[2024-10-31] MEDS ORDERED: LIDOCAINE 4% PATCH TP ONE (23:26)
[2024-10-31] MEDS ORDERED: ACETAMINOPHEN 325 MG TABLET (FP) ONE (23:26)
[2024-10-31] MEDS ORDERED: KETOROLAC TROMETHAMINE 15 MG/ML VIAL ONE (23:27)
[2024-10-31 23:30] LABS: POTASSIUM 4.2 mmol/L (3.5-5.1)
[2024-10-31 23:32] LABS: CALCIUM 10.4 mg/dL (8.5-10.1)
[2024-10-31 23:33] LABS: ALBUMIN 4.1 g/dl (3.4-5.0); BLOOD UREA NITROGEN 18.3 mg/dL (7-18)
[2024-10-31 23:36] LABS: CREATININE 0.9 mg/dL (0.55-1.3)
[2024-10-31 23:37] LABS: BILIRUBIN,TOTAL 0.2 mg/dL (0.2-1)
[2024-10-31 23:38] LABS: TOT PROT 7.4 g/dl (6.4-8.2)
[2024-10-31] MEDS: ACETAMINOPHEN 325 MG TABLET (FP) PO ONE (23:41)
[2024-10-31] MEDS: LIDOCAINE PATCH REMOVAL MC ONE (23:41)
[2024-10-31] MEDS: KETOROLAC TROMETHAMINE 15 MG/ML VIAL IVPUSH ONE (23:41)
[2024-10-31] MEDS: LIDOCAINE 4% PATCH TP ONE (23:41)
[2024-11-01 01:10] VITALS: BP 112/60; PULSE 81; RESP 16
== END 2024-11-01 01:15 | disposition home or self-care (01) ==
LOC: JER 22:09
PROC: 3E0333Z Introduction of Anti-inflammatory into Peripheral Vein, Percutaneous Approach (ICD-10-PCS; principal; 2024-10-31)
PROC: 3E0337Z Introduction of Electrolytic and Water Balance Substance into Peripheral Vein, Percutaneous Approach (ICD-10-PCS; 2024-10-31)
DX: M62.830 Muscle spasm of back (principal); M54.50 Low back pain, unspecified; R10.31 Right lower quadrant pain; X50.1XXA Overexertion from prolonged static or awkward postures, initial encounter
CPT/HCPCS: 36415; 74176-TC; 80053; 81003; 85025; 87086; 87186; 99285-25

== ENCOUNTER 2024-11-04 08:33 | Emergency (ER) | payer BC ==
[2024-11-04 08:40] VITALS: RESP 16; TEMP 98.9; BMI 33.2
[2024-11-04] MEDS ORDERED: ACETAMINOPHEN INJECTION 100 ML ONE (10:09)
[2024-11-04] MEDS ORDERED: LIDOCAINE 4% PATCH TP ONE (10:09)
[2024-11-04] MEDS: LIDOCAINE 4% PATCH TP ONE (10:15)
[2024-11-04] MEDS: ACETAMINOPHEN 1000 MG/100 ML BAG IVPB ONE (10:16)
[2024-11-04 10:20] LABS: ABSOLUTE IMMATURE GRANULOCYTES 0.02 x10^3/uL (0.0-0.031); BASOPHILS # 0.05 x10^3/uL (0.01-0.08); EOSINOPHIL % 1.4 % (0.7-5.8); EOSINOPHILS # 0.11 x10^3/uL (0.04-0.36); HEMATOCRIT 46.6 % (34.1-44.9); HEMOGLOBIN 15.3 g/dL (11.2-15.7); MCHC 32.8 g/dl (32.2-35.5); MEAN CELL VOLUME 88.3 fl (79.4-94.8); MEAN PLT VOLUME 9.4 fl (9.4-12.3); MONOCYTE # 0.46 x10^3/uL (0.24-0.86); MONOCYTE % 5.8 % (4.7-12.5); PLATELET COUNT 216 x10^3/uL (182-369); RDW 15.4 % (12.3-16.6)
[2024-11-04 10:24] LABS: PH,URINE 5.5 (5.0-8.0); URINE APPEARANCE CLEAR; URINE BILIRUBIN NEGATIVE (NEGATIVE); URINE COLOR YELLOW; URINE GLUCOSE (UA) NEGATIVE (NEGATIVE); URINE KETONE NEGATIVE (NEGATIVE); URINE LEUK ESTERASE 1+ (NEGATIVE); URINE NITRITE POSITIVE (NEGATIVE); URINE PROTEIN NEGATIVE (NEGATIVE); URINE UROBILINOGEN 0.2 mg/dL (0.2-1.0)
[2024-11-04 10:39] LABS: CHLORIDE 105 mmol/L (98-107); SODIUM 130 mmol/L (136-145)
[2024-11-04 10:40] LABS: CALCIUM 10.7 mg/dL (8.5-10.1)
[2024-11-04 10:42] LABS: ALBUMIN 3.7 g/dl (3.4-5.0); BLOOD UREA NITROGEN 20.2 mg/dL (7-18); CO2 29 mmol/L (21-32); GLUCOSE,RANDOM 172 mg/dL (74-106)
[2024-11-04 10:46] LABS: TOT PROT 8.5 g/dl (6.4-8.2)
[2024-11-04 10:47] LABS: ALK PHOS 96 U/L (45-117)
[2024-11-04 10:50] LABS: ANION GAP -4 mmol/L (4-13); POTASSIUM > 10.0 mmol/L (3.5-5.1); SGOT/AST 170 U/L (15-37)
[2024-11-04 12:01] LABS: CALCIUM 10.8 mg/dL (8.5-10.1)
[2024-11-04 12:02] LABS: BLOOD UREA NITROGEN 19.6 mg/dL (7-18)
[2024-11-04 12:05] LABS: CREATININE 0.9 mg/dL (0.55-1.3)
[2024-11-04 12:13] LABS: EPI CELLS 4.5 /uL (0-25.1); HYALINE CASTS 0.37 /uL (0-3.1); URINE BACTERIA 38019.4 /uL (0-1359); URINE RBC 10.5 /uL (0-23.9); URINE WBC 42 /uL (0-25.8)
[2024-11-04] MEDS ORDERED: CEPHALEXIN MONOHYDRATE 500 MG CAPSULE (UD) ONE (12:32)
[2024-11-04] MEDS: CEPHALEXIN MONOHYDRATE 500 MG CAPSULE (UD) PO ONE (12:34)
[2024-11-04 12:55] VITALS: BP 116/64; PULSE 68
== END 2024-11-04 12:55 | disposition home or self-care (01) ==
LOC: JER 08:33
DX: S39.011A Strain of muscle, fascia and tendon of abdomen, initial encounter (principal); N39.0 Urinary tract infection, site not specified; X50.1XXA Overexertion from prolonged static or awkward postures, initial encounter
CPT/HCPCS: 36415; 74177-TC; 80048; 80053; 81003; 85025; 87086; 87186; 99284-25; J0131; Q9967

== ENCOUNTER 2024-11-13 14:41 | Emergency (ER) | payer BC ==
[2024-11-13 14:47] VITALS: TEMP 97.7; BMI 33.2
[2024-11-13] MEDS ORDERED: ONDANSETRON 4 MG/2 ML VIAL ONE (15:44)
[2024-11-13] MEDS ORDERED: ACETAMINOPHEN INJECTION 100 ML ONE (15:44)
[2024-11-13] MEDS: ACETAMINOPHEN 1000 MG/100 ML BAG IVPB ONE (15:48)
[2024-11-13] MEDS: ONDANSETRON 4 MG/2 ML VIAL IVPB ONE (15:48)
[2024-11-13 15:49] LABS: ABSOLUTE IMMATURE GRANULOCYTES 0.01 x10^3/uL (0.0-0.031); BASOPHILS # 0.02 x10^3/uL (0.01-0.08); EOSINOPHIL % 1.2 % (0.7-5.8); HEMATOCRIT 43.7 % (34.1-44.9); HEMOGLOBIN 14.3 g/dL (11.2-15.7); MCHC 32.7 g/dl (32.2-35.5); MEAN CELL VOLUME 87.4 fl (79.4-94.8); MEAN PLT VOLUME 9.4 fl (9.4-12.3); MONOCYTE # 0.56 x10^3/uL (0.24-0.86); MONOCYTE % 6.6 % (4.7-12.5); PLATELET COUNT 222 x10^3/uL (182-369); RDW 12.9 % (12.3-16.6)
[2024-11-13 15:52] LABS: PH,URINE 5.5 (5.0-8.0); URINE APPEARANCE CLEAR; URINE BILIRUBIN NEGATIVE (NEGATIVE); URINE COLOR YELLOW; URINE GLUCOSE (UA) TRACE (NEGATIVE); URINE KETONE NEGATIVE (NEGATIVE); URINE LEUK ESTERASE NEGATIVE (NEGATIVE); URINE NITRITE NEGATIVE (NEGATIVE); URINE PROTEIN NEGATIVE (NEGATIVE); URINE UROBILINOGEN 0.2 mg/dL (0.2-1.0)
[2024-11-13 16:11] LABS: POTASSIUM 4.3 mmol/L (3.5-5.1)
[2024-11-13 16:13] LABS: CALCIUM 10.9 mg/dL (8.5-10.1)
[2024-11-13 16:14] LABS: ALBUMIN 4.2 g/dl (3.4-5.0); BLOOD UREA NITROGEN 23.1 mg/dL (7-18); MAGNESIUM 2.4 mg/dL (1.8-2.4)
[2024-11-13 16:18] LABS: BILIRUBIN,TOTAL 0.4 mg/dL (0.2-1); TOT PROT 7.7 g/dl (6.4-8.2)
[2024-11-13 17:04] VITALS: BP 157/83; PULSE 82; RESP 17
== END 2024-11-13 18:35 | disposition home or self-care (01) ==
LOC: JER 14:41
PROC: 3E033NZ Introduction of Analgesics, Hypnotics, Sedatives into Peripheral Vein, Percutaneous Approach (ICD-10-PCS; principal; 2024-11-13)
PROC: 3E033GC Introduction of Other Therapeutic Substance into Peripheral Vein, Percutaneous Approach (ICD-10-PCS; 2024-11-13)
DX: R10.12 Left upper quadrant pain (principal); R11.0 Nausea
CPT/HCPCS: 36415; 71045-TC-FY; 80053; 81003; 83605; 83690; 83735; 84484; 85025; 86850; 86900; 86901; 87086; 93005; 93010; 99285-25; J0131